=== PATIENT | male | born 2005 | race Caucasian/White ===

== ENCOUNTER 2023-07-02 13:04 | Emergency (ER) | payer SELFPAY ==
[~2023-07-02] VITALS: Ht 157.5 cm; Wt 72.6 kg
[2023-07-02 13:06] VITALS: BP 139/84; PULSE 140; RESP 19; TEMP 98.2; O2SAT 99
[2023-07-02] MEDS ORDERED: LORazepam 2 MG/ML VIAL IVP ONE (13:15)
[2023-07-02 14:33] VITALS: O2SAT 99
[2023-07-02 16:53] VITALS: BP 132/89; PULSE 86; RESP 14; TEMP 98
[2023-07-02 16:59] VITALS: O2SAT 90
== END 2023-07-02 16:55 | disposition home or self-care (01) ==
LOC: MED 13:04
DX: F14.90 Cocaine use, unspecified, uncomplicated (principal); R00.2 Palpitations; T40.5X5A Adverse effect of cocaine, initial encounter; Y92.89 Other specified places as the place of occurrence of the external cause
CPT/HCPCS: 93005; 96374; 99283; J2060